=== PATIENT | male | born 1975 | race Caucasian/White ===

== ENCOUNTER 2018-12-12 12:08 | Emergency (ER) | payer MEDICAID, OTHER ==
[2018-12-12] MEDS ORDERED: KETOROLAC 60 MG/2 ML VIAL IM STA (12:54)
--- NOTE | 2018-12-12 13:30 | CT Report ---
Reason: frontal headache Procedure Date: 12/12/2018 Accession Number: [id number] / [id number] Procedure: CT - Head W/O CPT Code: FULL RESULT: EXAM: CT HEAD EXAM DATE: 12/12/2018 01:12 PM. CLINICAL HISTORY: Frontal headache. COMPARISON: None available. TECHNIQUE: Multiaxial CT images were obtained from the foramen magnum to the vertex. Reformats: Sagittal and coronal. IV contrast: None. In accordance with CT protocol optimization, one or more of the following dose reduction techniques were utilized for this exam: automated exposure control, adjustment of mA and/or KV based on patient size, or use of iterative reconstructive technique. FINDINGS: Parenchyma: No intraparenchymal hemorrhage. No evidence of mass, midline shift, or CT findings of infarction. Kiser-white differentiation is distinct. There are atrophic changes with prominence of the sulci, which appears accelerated for the patient's age particularly in the frontal lobes. Extraaxial Spaces: Normal for age. No subdural or epidural collections identified. Ventricles: Normal in size and position. Sinuses and Orbits: The right maxillary sinus is opacified. Right ethmoid air cells are almost completely opacified. Bones: No evidence of fracture or calvarial defect. Other: None. IMPRESSION: 1. No acute intracranial abnormality. 2. Right maxillary and ethmoid sinus disease. RADIA
--- NOTE | 2018-12-12 14:21 | ED Physician Documentation ---
PD HPI HEADACHE - Stated complaint Stated Complaint: HEAD PRESSURE/PX - Chief complaint Chief Complaint: Heent - History obtained from History obtained from: Patient - History of Present Illness Timing - onset: How many weeks ago (1) Timing - details: Gradual onset, Still present, Waxing and waning Worst headache ever?: Worst headache ever? (No) Location: Front Quality: Aching Recently seen: Clinic (He was seen at the walk-in clinic 4 days ago for headache.) - Treatment prior to arrival Treatment prior to arrival: Ibuprofen, which provided slight transient improvement. - Additional information Additional information: The patient is a 43-year-old male who presents with frontal headache that started about one week ago and has been persistent since that time. It was gradual in onset. He complains of associated cyanosis congestion. He denies fever, visual disturbance, nausea or vomiting, numbness or weakness. He was seen at the walk-in clinic 4 days ago for his headache. Giant cell arteritis was considered at that time, but workup was negative. Ibuprofen provides slight transient improvement. His father from a brain tumor at age 56, and he is concerned about the possibility of brain cancer. Review of Systems Constitutional: denies: Fever Eyes: denies: Photophobia Ears: denies: Tinnitus/ringing Nose: reports: Congestion, Sinus pressure / pain Throat: denies: Sore throat Cardiac: denies: Chest pain / pressure Respiratory: denies: Dyspnea, Cough GI: denies: Abdominal Pain, Nausea, Vomiting : denies: Dysuria Skin: denies: Rash Musculoskeletal: denies: Neck pain Neurologic: reports: Headache. denies: Focal weakness, Numbness PD PAST MEDICAL HISTORY - Past Medical History Past Medical History: Yes Cardiovascular: None Respiratory: None Neuro: None Endocrine/Autoimmune: None GI: None : None HEENT: None Psych: None Musculoskeletal: None Derm: None - Past Surgical History Past Surgical History: Yes - Present Medications Home Medications: Ambulatory Orders Medication Instructions Recorded Confirmed Amox/Clav 875/125 [Augmentin] 1 each PO Q12H #20 tablet 12/12/18 Hydrocodone/Acetaminophen 1 - 2 each PO Q6H PRN #14 tablet 12/12/18 [Hydrocodon-Acetaminophen 5-325] - Allergies Allergies/Adverse Reactions: Allergies Allergy/AdvReac Type Severity Reaction Status Date / Time No Known Drug Allergies Allergy Verified 12/12/18 12:15 - Social History Does the pt smoke?: No Smoking Status: Never smoker Does the pt drink ETOH?: Yes ETOH Use: Wine Does the pt have substance abuse?: No - Family History Family history: reports: Cancer (Father of brain cancer at age 56.) - Immunizations Immunizations are current?: Yes - POLST Patient has POLST: No PD ED PE NORMAL - Vitals Vital signs reviewed: Yes (Hypertensive.) - General General: Alert and oriented X 3, Well developed/nourished - HEENT HEENT: Atraumatic, PERRL, EOMI, Ears normal, Pharynx benign, Other (Fundi with sharp disc margins, without papilledema. Tenderness to percussion over the right maxillary sinus.) - Neck Neck: Supple, no meningeal sign, No adenopathy, No JVD - Cardiac Cardiac: RRR, No murmur - Respiratory Respiratory: No respiratory distress, Clear bilaterally - Abdomen Abdomen: Soft, Non tender - Back Back: No CVA TTP - Derm Derm: No rash - Extremities Extremities: No edema, No calf tenderness / cord - Neuro Neuro: Alert and oriented X 3, No motor deficit, No sensory deficit, Normal speech Results - Vitals Vitals: Oxygen O2 Source Room air - Rads (name of study) Head CT Radiology: Prelim report reviewed, EMP read contemporaneously, See rad report (No acute intracranial abnormality. Right maxillary and ethmoid sinus disease.) PD MEDICAL DECISION MAKING - ED course Complexity details: reviewed results, re-evaluated patient, considered differential, d/w patient ED course: The patient's headache is most likely due to sinus infection. I doubt migraine headache, meningitis, or temporal arteritis. Head CT without contrast reveals opacified right maxillary and ethmoid sinuses. There is no evidence of intracranial bleed, and no evidence of intracerebral mass on noncontrast study. Treatment in the emergency department included administration of ketorolac 60 mg IM. This provided slight improvement in the patient's headache. He is being discharged with prescriptions for Augmentin and for Vicodin, 14 tablets. I discussed with him the expected course of illness, antibiotic treatment and outpatient follow-up, as well as potentially worrisome signs or symptoms that should prompt reevaluation in the emergency department. Departure - Departure Disposition: 01 Home, Self Care Clinical Impression: Sinusitis Qualifiers: Sinusitis location: unspecified location Chronicity: acute Recurrence: not specified as recurrent Qualified Code(s): J01.90 - Acute sinusitis, unspecified Condition: Stable Instructions: ED Sinusitis Abx Tx Follow-Up: [facility] [Provider Group] Prescriptions: Amox/Clav 875/125 [Augmentin] 1 each PO Q12H #20 tablet Hydrocodone/Acetaminophen [Hydrocodon-Acetaminophen 5-325] 1 - 2 each PO Q6H PRN #14 tablet PRN Reason: pain Comments: Take Augmentin twice daily as prescribed. You should eat probiotic while on antibiotic therapy. Ibuprofen if needed for headache. If needed you can use Vicodin as prescribed. Follow-up with your primary physician within 2 weeks if possible. Call to schedule appointment. Return to the emergency department if you develop increasing headache, fever with shaking chills, persistent vomiting, or otherwise worsening symptoms. Discharge Date/Time: 12/12/18 14:46
[2018-12-12 14:34] VITALS: BP 158/98
== END 2018-12-12 14:46 | disposition home or self-care (01) ==
LOC: ED 12:08
DX: J01.90 Acute sinusitis, unspecified (principal)
CPT/HCPCS: 70450; 96372; 99283

== ENCOUNTER 2018-12-27 10:01 | Emergency (ER) | payer OTHER ==
[2018-12-27 10:19] VITALS: BP 151/106
--- NOTE | 2018-12-27 11:04 | ED Physician Documentation ---
PD HPI OPHTHO - Stated complaint Stated Complaint: R EYE SWELLING - Chief complaint Chief Complaint: Heent - History obtained from History obtained from: Patient - History of Present Illness Timing - onset: Today Timing - details: Gradual onset (has had some nasal congestion, discharge and right maxillary pressure. Today noted redness and swelling of the right eyelid upper and lower.) Location: Right Associated symptoms: Redness, Swelling (eyelid), Tearing. No: Discharge, FB sensation, Photophobia, Headache Contributing factors: Recent URI (has had sinus congestion and pressure.). No: Exposed to conjunctivitis, UV light (welding etc), Chemical exposure, acid, Chemical exposure, base, Blunt trauma, Wears contacts Similar symptoms before: Has not had sx before Recently seen: Not recently seen Review of Systems Constitutional: denies: Fever, Chills Eyes: denies: Loss of vision, Decreased vision, Photophobia Ears: denies: Ear pain Nose: denies: Rhinorrhea / runny nose, Foreign Body, Reviewed and negative Throat: denies: Dental pain / toothache, Sore throat Respiratory: denies: Dyspnea, Cough PD PAST MEDICAL HISTORY - Past Medical History Past Medical History: Yes Cardiovascular: None Respiratory: None Neuro: None Endocrine/Autoimmune: None GI: None : None HEENT: None Psych: None Musculoskeletal: None Derm: None - Past Surgical History Past Surgical History: Yes - Present Medications Home Medications: Ambulatory Orders Medication Instructions Recorded Confirmed Cetirizine [ZyrTEC] 10 mg PO DAILY #15 tablet 12/27/18 Dexamethasone [Decadron] 4 mg PO DAILY #5 tablet 12/27/18 Doxycycline Hyclate 100 mg PO BID #20 capsule 12/27/18 - Allergies Allergies/Adverse Reactions: Allergies Allergy/AdvReac Type Severity Reaction Status Date / Time No Known Drug Allergies Allergy Verified 12/27/18 10:19 - Social History Does the pt smoke?: No Smoking Status: Never smoker Does the pt drink ETOH?: Yes Does the pt have substance abuse?: No - Immunizations Immunizations are current?: Yes - POLST Patient has POLST: No PD ED PE NORMAL - Vitals Vital signs reviewed: Yes - General General: Alert and oriented X 3, No acute distress, Well developed/nourished - HEENT HEENT: PERRL (right upper eyelid with redness and swelling. No pain on EOMs of the eyes. No light sensitive.), EOMI PD ED PE EXPANDED - Eyes Eyes: Anterior chambers clear, Normal fundi, Other (iop 16 on right eye). No: Ant chamber cells/flare Results - Vitals Vitals: Vital Signs - 24 hr 12/27/18 10:14 Temperature 35.6 C L Heart Rate 92 Respiratory 16 Rate Blood Pressure 151/106 H O2 Saturation 97 Oxygen O2 Source Room air PD MEDICAL DECISION MAKING - ED course Complexity details: considered differential (no eye socket pain. Has redness and swelling of eyelids. Also with sinus congestion and pressure. ), d/w patient Departure - Departure Disposition: Home, Self Care Clinical Impression: Periorbital cellulitis of right eye Sinusitis, acute Qualifiers: Sinusitis location: sphenoidal Recurrence: recurrent Qualified Code(s): J01.31 - Acute recurrent sphenoidal sinusitis Condition: Stable Record reviewed to determine appropriate education?: Yes Instructions: ED Sinusitis Abx Tx Prescriptions: Cetirizine [ZyrTEC] 10 mg PO DAILY #15 tablet Dexamethasone [Decadron] 4 mg PO DAILY #5 tablet Doxycycline Hyclate 100 mg PO BID #20 capsule Comments: Use some saline nasal spray 3-4 times a day to help clean the nasal passageway and promote sinus drainage. Take doxycycline antibiotic twice daily for 10 days. Decadron steroid anti-inflammatory to promote sinus drainage as well daily for 5 days. Cetirizine antihistamine daily for the next week or 2. R echeck if not improving over the next few days and return sooner if worsening. Discharge Date/Time: 12/27/18 11:29
[2018-12-27] MEDS ORDERED: DEXAMETHASONE 10 MG/ML VIAL PO STA (11:20)
[2018-12-27] MEDS ORDERED: DOXYCYCLINE 100 MG TABLET PO STA (11:20)
[2018-12-27] MEDS ORDERED: CHERRY SYRUP 10 ML UDC PO ONE (11:29)
== END 2018-12-27 11:29 | disposition home or self-care (01) ==
LOC: ED 10:01
DX: L03.213 Periorbital cellulitis (principal); J01.31 Acute recurrent sphenoidal sinusitis
CPT/HCPCS: 99283; A9270

== ENCOUNTER 2020-09-14 14:02 | Emergency (ER) | payer OTHER ==
[2020-09-14 14:20] VITALS: BP 151/96
[2020-09-14] MEDS ORDERED: KETOROLAC 60 MG/2 ML VIAL IM STA (14:27)
--- NOTE | 2020-09-14 14:29 | ED Physician Documentation ---
History of Present Illness - Stated complaint Stated Complaint: FALL - Chief complaint Chief Complaint: Trauma Ext - History obtained from History obtained from: Patient - History of Present Illness Timing: Prior to arrival - Additonal information Additional information: 45-year-old male presents the emergency department with right elbow pain right forearm pain and midline lumbar pain after a fall that occurred at a customer's house this afternoon when he was descending stairs. He landed on his right elbow and mid back. He had no loss of consciousness. He presents with a very large contusion on the right ulnar side of the elbow with mild swelling. He is also reporting some low back pain after striking the stairs. He has a mildly antalgic gait. No history of previous injury to the back or elbow in the past. pt is right handed. denies hx of htn, dm soc: + tobacco Review of Systems Constitutional: reports: Reviewed and negative Eyes: reports: Reviewed and negative Ears: reports: Reviewed and negative Nose: reports: Reviewed and negative Throat: reports: Reviewed and negative Cardiac: reports: Reviewed and negative Respiratory: reports: Reviewed and negative GI: reports: Reviewed and negative : reports: Dysuria, Reviewed and negative Skin: reports: Lesions (contusion ulnar side right elbow) Musculoskeletal: reports: Back pain (lowr lumbar), Joint pain (right elbow) Neurologic: reports: Reviewed and negative PD PAST MEDICAL HISTORY - Past Medical History Cardiovascular: None Respiratory: None Neuro: None Endocrine/Autoimmune: None GI: None : None HEENT: None Psych: None Musculoskeletal: None Derm: None - Past Surgical History Past Surgical History: Yes - Present Medications Home Medications: Ambulatory Orders Medication Instructions Recorded Confirmed Cetirizine [ZyrTEC] 10 mg PO DAILY #15 tablet 12/27/18 Doxycycline Hyclate 100 mg PO BID #20 capsule 12/27/18 dexAMETHasone [Decadron] 4 mg PO DAILY #5 tablet 12/27/18 Ibuprofen [Motrin] 600 mg PO Q6H PRN #30 tab 09/14/20 Methocarbamol [Robaxin-750] 750 mg PO TID PRN #30 tablet 09/14/20 - Allergies Allergies/Adverse Reactions: Allergies Allergy/AdvReac Type Severity Reaction Status Date / Time No Known Drug Allergies Allergy Verified 09/14/20 14:20 - Social History Does the pt smoke?: No Smoking Status: Never smoker Does the pt drink ETOH?: Yes Does the pt have substance abuse?: No - Immunizations Immunizations are current?: Yes - POLST Patient has POLST: No PD ED PE EXPANDED - General General: Alert, No acute distress - HEENT HEENT: Atraumatic, PERRL - Neck Neck: Supple w/out meningeal sx. No: Adenopathy - Cardiac Cardiac: Regular Rate, Regular Rhythm, Radial strong equal, Pedal strong equal, Cap refill < 2 sec - Respiratory Respiratory: Clear to ausultation devin - Back Back: Vertebral tenderness (Contusion across the lower lumbar spine with mild tenderness midline. Patient has a mildly antalgic gait. Reduced range of motion secondary to pain.) - Extremities Extremities: Right elbow (Large contusion medial side right elbow. Swelling medial elbow. Patient able to flex and extend the elbow against resistance. Able to supinate and pronate normally.) - Neuro Neuro: Alert and Oriented X 3, CNII-XII intact, Normal gait (mildly antalgic) - GCS Eye Opening: Spontaneous Motor: Obeys Commands Verbal: Oriented Total: 15 Results - Vitals Vitals: Vital Signs - 24 hr 09/14/20 14:15 Temperature 36.7 C Heart Rate 85 Respiratory 14 Rate Blood Pressure 151/96 H O2 Saturation 96 Oxygen O2 Source Room air - Rads (name of study) right elbow Radiology: Final report received (no acute fx or dislocation) right forearm Radiology: Final report received (no acute fx or dislocation) lumbar xr Radiology: Final report received (no acute fx or dislocation) PD MEDICAL DECISION MAKING - ED course Complexity details: reviewed results, re-evaluated patient, considered differential, d/w patient ED course: 45-year-old male here with acute right elbow pain and contusion as well as lower lumbar contusion and pain after a fall on some steps while at work this afternoon. xrays or elbow, forearm and lumbar spine do not show any obvious fx, though DDD is present on lumbar film. pain improved with toradol. will rx motrin and muscle relaxer on dc. L&I paperwork completed. Pt advised close f/u with pcp Departure - Departure Disposition: 01 Home, Self Care Clinical Impression: Contusion of elbow, right Qualifiers: Encounter type: initial encounter Qualified Code(s): S50.01XA - Contusion of right elbow, initial encounter Lumbar contusion Qualifiers: Encounter type: initial encounter Qualified Code(s): S30.0XXA - Contusion of lower back and pelvis, initial encounter Low back pain Qualifiers: Chronicity: acute Back pain laterality: midline Sciatica presence: without sciatica Qualified Code(s): M54.5 - Low back pain Instructions: ED Low Back Pain Injury, ED Contusion Back Prescriptions: Ibuprofen [Motrin] 600 mg PO Q6H PRN #30 tab PRN Reason: Pain Methocarbamol [Robaxin-750] 750 mg PO TID PRN #30 tablet PRN Reason: Spasms Comments: Let us have you take the ibuprofen 2-3 times a day for discomfort. Please take with food it may cause stomach upset. I have also written a prescription for methocarbamol which is a muscle relaxer. Please be careful when using this as it may make you dizzy and unsafe to drive. I would expect that you are generally very sore over the next 2 to 3 days but then your discomfort should start to ease. I would like you to schedule close follow-up with your primary care provider for further evaluation If your symptoms begin to worsen, you have difficulty controlling your bowel or bladder movements or numbness in your saddle area please return immediately to the emergency department
--- NOTE | 2020-09-14 14:56 | XRAY Report ---
PROCEDURE: Forearm RT INDICATIONS: contusion after fall TECHNIQUE: 2 views of the forearm were acquired. COMPARISON: X-ray elbow 09/14/2020. FINDINGS: Bones: No fractures or dislocations. No suspicious bony lesions. Soft tissues: No suspicious soft tissue calcifications or masses. IMPRESSION: No visualized acute fracture or dislocation. However, occult injury cannot be excluded. Recommend cici rt interval imaging follow-up in 7-10 days as clinically indicated for additional evaluation. Reviewed by: Rupal Landis MD on 09/14/2020 2:55 PM PDT Approved by: Rupal Landis MD on 09/14/2020 2:55 PM PDT Station ID: [id number]
--- NOTE | 2020-09-14 14:57 | XRAY Report ---
PROCEDURE: Elbow 3 View RT INDICATIONS: fall; r/o fx TECHNIQUE: 3 views of the elbow were acquired. COMPARISON: X-ray forearm 09/14/2020 FINDINGS: Bones: No fractures or dislocations. No suspicious bony lesions. Soft tissues: No elbow joint effusion. No suspicious soft tissue calcifications. IMPRESSION: No visualized acute fracture or dislocation. However, occult injury cannot be excluded. Recommend cici rt interval imaging follow-up in 7-10 days as clinically indicated for additional evaluation. Reviewed by: Rupal Landis MD on 09/14/2020 2:55 PM PDT Approved by: Rupal Landis MD on 09/14/2020 2:55 PM PDT Station ID: [id number]
--- NOTE | 2020-09-14 15:08 | XRAY Report ---
PROCEDURE: Lumbar Spine 2 View INDICATIONS: midline pain after fall TECHNIQUE: 2 views of the lumbar spine were acquired. COMPARISON: None. FINDINGS: Bones: 5 [id number] vertebrae are present. There is very mild leftward scoliosis of lumbar spi ne centered at L2-3 level. Mild degenerative endplate changes at L4-5 and L5-S1 levels are also seen. No vertebral body compression fractures. No suspicious bony lesions. Soft tissues: Overlying bowel gas pattern is normal. No suspicious soft tissue calcifications. IMPRESSION: Mild scoliosis and mild degenerative disc disease in lower lumbar spine. No acute compre ssion fracture or spondylolisthesis. Reviewed by: Ronnie Washburn MD on 09/14/2020 2:07 PM KATIE Approved by: Ronnie Washburn MD on 09/14/2020 2:07 PM KATIE Station ID: [id number]
== END 2020-09-14 15:27 | disposition home or self-care (01) ==
LOC: ED 14:02
DX: S50.01XA Contusion of right elbow, initial encounter (principal); S30.0XXA Contusion of lower back and pelvis, initial encounter; W10.9XXA Fall (on) (from) unspecified stairs and steps, initial encounter; Y93.89 Activity, other specified; Y92.008 Other place in unspecified non-institutional (private) residence as the place of occurrence of the external cause; Y99.0 Civilian activity done for income or pay
CPT/HCPCS: 1040M; 72100; 73080; 73090; 96372; 99283; 99284